=== PATIENT | male | born 1965 ===

== ENCOUNTER 2017-04-19 14:28 | Emergency (ER) | payer MEDICARE, OTHER ==
[~2017-04-19 14:28] MED LIST: Calcium Chloride 1000 mg/10 ml Syringe IV ONE
[2017-04-19 14:34] VITALS: BP 64/41; PULSE 74
[2017-04-19] MEDS ORDERED: Sodium Chloride 0.9% 1,000 ML IV STA (14:50)
[2017-04-19] MEDS ORDERED: Amiodarone 150mg/3 ml vial ONE (14:50)
[2017-04-19 15:12] LABS: BASO % 0.3 % (0.0-2.0); EOS # 0.2 K/uL (0.0-0.7); EOS % 1.4 % (0.0-4.0); HEMATOCRIT 33.3 % (35.0-51.0); LYMPH # 8.1 K/uL (1.0-4.3); LYMPH % 49.9 % (20.0-40.0); MEAN CELL VOLUME 86.8 fl (80.0-94.0); MEAN CORPUSCULAR HEMOGLOBIN 26.3 pg (27.0-31.0); MEAN CORPUSCULAR HGB CONC 30.3 g/dL (33.0-37.0); MEAN PLATELET VOLUME 11.6 fl (7.2-11.7); MONO % 12.2 % (0.0-10.0); NEUT # 5.9 K/uL (1.8-7.0); NEUT % 36.2 % (50.0-75.0); NRBC % 0.3 % (0.0-0.0); RED CELL DISTRIBUTION WIDTH 14.9 % (11.5-14.5); WHITE BLOOD COUNT 16.2 K/uL (4.8-10.8)
[2017-04-19 15:20] LABS: PARTIAL THROMBOPLASTIN TIME 34.7 Seconds (25.6-37.1)
[2017-04-19 15:21] LABS: BLOOD UREA NITROGEN 18 mg/dl (9-20); CALCIUM 9.3 mg/dL (8.4-10.2); CARBON DIOXIDE 18 mmol/L (22-30); CHLORIDE 107 mmol/L (98-107); GFR AFRICAN-AMERICAN > 60; GLUCOSE,RANDOM 316 mg/dL (75-110); SODIUM 144 mmol/l (132-148)
--- NOTE | 2017-04-19 15:41 | RAD ---
HISTORY: intubation COMPARISON: None available. TECHNIQUE: Chest, one view. FINDINGS: Numerous external wires and leads obscure evaluation of the underlying parenchyma. At least 2 external defibrillator pads. Endotracheal tube terminates approximately 2.8 cm above the everett. LUNGS: Pulmonary venous congestion. No focal consolidation. Please note that chest x-ray has limited sensitivity for the detection of pulmonary masses. PLEURA: No significant pleural effusion identified. No definite pneumothorax . CARDIOVASCULAR: Median sternotomy wires with evidence of CABG. Cardiomegaly. Single lead left-sided AICD. OSSEOUS STRUCTURES: No acute osseous abnormality identified. VISUALIZED UPPER ABDOMEN: Unremarkable. OTHER FINDINGS: None. IMPRESSION: Pulmonary venous congestion. At least 2 external defibrillator pads. Endotracheal tube terminates approximately 2.8 cm above the everett. Median sternotomy wires. Cardiomegaly. Single lead left-sided AICD.
[2017-04-19] MEDS ORDERED: Protamine 50mg/5mL Inj IV ONE (16:03)
[2017-04-19] MEDS ORDERED: Heparin25000 units/250ml 1/2NS 25,000 UNITS/250 ML BAG IV ONE (16:04)
[2017-04-19 16:08] LABS: RBC URINE 26 /hpf (0-3); URINE BACTERIA MANY (<OCC); URINE BILIRUBIN NEGATIVE (NEGATIVE); URINE BLOOD SMALL (NEGATIVE); URINE COLOR YELLOW (YELLOW); URINE GLUCOSE (UA) >=500 mg/dL (Normal); URINE KETONE NEGATIVE (NEGATIVE); URINE LEUKOCYTE ESTERASE NEG Leu/uL (Negative); URINE PROTEIN >=500 mg/dL (NEGATIVE); WBC URINE 3 /hpf (0-5)
--- NOTE | 2017-04-19 16:18 | ED PDOC ---
HPI: Cardiac Arrest Time Seen by Provider: 04/19/17 14:51 Chief Complaint (Nursing): Cardiac Arrest Chief Complaint (Provider): Cardiac Arrest History Per: EMS, Family Reason For Code Blue: Unresponsive Circumstances: Brought To ED By EMS Arrest Witnessed By: No One CPR Initiated Prior To MD Arrival?: Yes Down-Time Before ACLS: Mins (60) Treatment Initiated Prior To MD Arrival: CPR, Defibrillation (x 2) Additional Complaint(s): 51 year old male, past medical history of diabetes, hypertension, CABG, brought in by EMS to ED while in cardiac arrest. Patient was found unresponsive by his niece at 13:45, states that he was lying face down on bed. He was brought in by EMS at 14:26 with ongoing chest compressions. Per EMS, patient was shocked twice in field with no response. Upon arrival patient obtunded and full HPI unavailable. - Initial Findings Mentation: Unresponsive Respirations: None (Assisted) Pulse: None Rhythm: PEA Past Medical History Reviewed: Historical Data, Nursing Documentation, Vital Signs Vital Signs: Last Vital Signs Temp Pulse 74 04/19/17 14:30 Resp BP 64/41 L 04/19/17 14:30 Pulse Ox - Medical History PMH: Diabetes, HTN - Surgical History Surgical History: CABG (14 years ago) - Family History Family History: States: No Known Family Hx, Unknown Family Hx - Social History Ex-Smoker (has not smoked in the last 12 months): Yes (stopped 15 years ago.) - Allergies Allergies/Adverse Reactions: Allergies Allergy/AdvReac Type Severity Reaction Status Date / Time No Known Allergies Allergy Verified 04/19/17 14:30 Review of Systems Review Of Systems: ROS cannot be obtained secondary to pt's inabilty to answer questions. Physical Exam - Reviewed Nursing Documentation Reviewed: Yes Vital Signs Reviewed: Yes - Physical Exam Appears: Positive for: In Acute Distress Skin: Positive for: Cyanosis (hands and feet bilaterally) Eye Exam: Positive for: Other (pupils normal diameter but fixed) Comments: no signs of trauma - Laboratory Results Result Diagrams: 04/19/17 15:05 04/19/17 15:05 - Critical Care Total Time (In Min): 108 Documented Critical Care: Time excludes all time spent performint seperately billable procedures Medical Decision Making Medical Decision Making: Time: 14:26 Clinical Impression: Cardiac arrest Plan: 14:28 --1 mg epinephrin (PEA) --Constant chest compressions 14:30 -- Accucheck (337) --30 mg amnioderone --1 mg bicarbonate 14:32 --started IV central line left femoral performed by Dr. Melendez --1 mg epinephrine (PEA) 14:33 --1 mg epinephrine central line -- fluids administered 14:34 --Intubated by Dr. Carrasco. Tube size 7.5 14:35 --1 mg bicarbonate 14:36 --1 mg epinephrine (PEA) 14:39 --1 mg epinephrine (PEA) --Bedside US to check to pulse; none found 14:42 --1 mg atropine --1 mg epinephrine 14:43 -- Dextrose 50% --1 mg bicarbonate 14:44 --bedside Doppler; pulse found HR 66 --compressions stopped 14:45 --1 mg bicarbonate 14:46 --1 mg epinephrine 14:50 --Levafed 10 mcg 14:51 --1 mg epinephrine 14:52 -- spoke with Dr. Vasquez who wants aspirin, heparin, and Brilinta 14:55 --Amnioderone drip 1 mg/ minute 14:57 --4000 units Heparin 14:58 --Chest Xray 15:01 --Rectal aspirin administered 15:02 --spoke with Dr. Perez who wants transfer to veterinary laboratory diagnostician at [facility] 15:04 --"coffee grounds" like vomitus in suction --levafed 15 mcg/min 15:06 --Levafed 20 mcg/ min 15:07 --Levafed 25 mcg/ min -- 1 mg epi 15:08 --compressions started 15:09 -- PEA --heparin drip stopped 15:12 -- PEA; compressions continued --Accucheck (370) 15:13 --1 mg epinephrine 15:14 --pulse regained -- Dr. Perez updated of patient's condition; still wants transfer to veterinary laboratory diagnostician. 15:18 --200 cc coffee grounds found 15:24 --80 mg protonics IV -- Compressions started -- 1 mg epinephrine (PEA) --Code Blue called 15:25 --1 mg epinephrine 15:27 --Cárdenas catheter inserted. 15:33 --O negative Bolus started 15:35 -- Compressions started 13:36 -10 units of Insulin IV --1 mg epinephrine (PEA) --20 cc of clear yellow urine noted 15:37 -- steady pulse regained. -- 1 mg bicarbonate 15:38 --stopped compressions 15:40 --40 mg/h protonics drip 15:50 --Normal saline bolus 16:00 --Brilinta given --Jesús ACLS arrived for transport. 16:10 --transported to veterinary laboratory diagnostician at [facility] via [facility] [place] Dr. Perez waiting for patient at [facility] Procedures - Central Line Central Line Lumen: triple Central Line Postion: femoral (L) Complications: none Progress: Indication for central line due to cardiac arrest. Procedure performed by Dr. Melendez. - Intubation Time of Intubation: 14:34 Intubation Method: orotracheal Tube Size (cm): 7.5 Progress/Xray Impression: Intubated due to cardiac arrest. Procedure performed by Dr. Carrasco. Disposition - Clinical Impression Clinical Impression: Cardiac arrest, AMI (acute myocardial infarction) - Disposition Disposition: Transfer of Care ([facility]) Disposition Time: 16:10 Condition: CRITICAL Forms: [facility] (Telugu) - POA Core Measure Indicators: Code Heart
--- NOTE | 2017-04-20 09:54 | CARD ---
APPROVED REPORT EKG Measurement Heart [id number] [id number] <Conclusion> Sinus tachycardia with 1st degree AV block Rightward axis Nonspecific intraventricular block Cannot rule out Septal infarct, age undetermined Inferior injury pattern ACUTE [place] / STEMI Consider right ventricular involvement in acute inferior infarct Abnormal ECG
== END 2017-04-19 16:10 | disposition short-term general hospital (02) ==
LOC: H.ER 14:28 → EDBD 14:28 → H.ER 16:10
DX: I46.9 Cardiac arrest, cause unspecified (principal); E11.9 Type 2 diabetes mellitus without complications; I10 Essential (primary) hypertension; I21.9 Acute myocardial infarction, unspecified; Z79.4 Long term (current) use of insulin; Z87.891 Personal history of nicotine dependence; Z95.1 Presence of aortocoronary bypass graft; Z95.810 Presence of automatic (implantable) cardiac defibrillator
CPT/HCPCS: 31500; 36430; 71010; 80048; 81003; 82948; 84484; 85025; 85610; 85730; 92950; 93005; 99284; G0480; J0171; P9051